=== PATIENT | male | born 1995 | race Asian ===

== ENCOUNTER 2016-07-10 09:52 | Emergency (ER) | payer OTHER ==
[~2016-07-10] VITALS: Ht 170.2 cm; Wt 63.6 kg
[~2016-07-10 09:52] MED LIST: NO HOME MEDICATIONS
[2016-07-10 10:01] VITALS: TEMP 98
[2016-07-10] MEDS ORDERED: DIGESTIVE ENZYM1 TAB PO (10:05)
[2016-07-10] MEDS ORDERED: PHENERGAN 25 TA25 MG PO (10:41)
[2016-07-10 12:44] VITALS: BP 120/70; PULSE 98
== END 2016-07-10 12:46 | disposition home or self-care (01) ==
LOC: COL.ER 09:52
DX: T62.91XA Toxic effect of unspecified noxious substance eaten as food, accidental (unintentional), initial encounter (principal); K52.1 Toxic gastroenteritis and colitis; R11.10 Vomiting, unspecified
CPT/HCPCS: J2405; J2550; J7030